=== PATIENT | male | born 1950 | race Asian ===

== ENCOUNTER 2018-09-16 07:45 | Emergency (ER) | payer MEDICARE, OTHER ==
[2018-09-16] MEDS: LIDOCAINE 2% (MDV) 20 ML INJ INJ (09:01)
[2018-09-16] MEDS: DIPHTH/TET/ACEL PERTUSS (ADULT) 0.5 ML VIAL IM* (09:01)
== END 2018-09-16 11:00 | disposition home or self-care (01) ==
LOC: E/R 07:45
DX: S01.81XA Laceration without foreign body of other part of head, initial encounter (principal); S09.8XXA Other specified injuries of head, initial encounter; N18.9 Chronic kidney disease, unspecified; W18.39XA Other fall on same level, initial encounter; Y92.9 Unspecified place or not applicable; Z23 Encounter for immunization
CPT/HCPCS: 12013; 70450; 90471; 90715; 99284-25